=== PATIENT | female | born 1940 | race Caucasian/White ===

== ENCOUNTER → 2016-05-28 | Outpatient (REF) ==
[~2016-05-28] MED LIST: ACIDOPHILUS PO; AMOXICILLIN/CLA1 TA1 PO; ASPIRIN 32325 MG/TAB PO; BENADRYL25 M2 PO; CALCIUM + D 6001 TA1 PO; DITROPAN XL15 MG PO; DUO-KAPS1 CAP PO; FISH OIL CONCEN1 SGL PO; GENTAMICIN180 MG/502 NS; MOTRIN 200200 MG/TAB PO; NIACINAMIDE PO; OXYBUTYNIN5 MG PO; PAROXETINE HY37.5 MG PO; PERCOCET 325 MG1 TA2 PO; PROTONIX20 MG PO; TOPROL XL25 MG PO; UBIQUINOL50 MG PO; VITAMIN D31000 I1 PO
== END ==
LOC: WSOH 10:11
DX: Z02.89 Encounter for other administrative examinations (principal)

== ENCOUNTER → 2016-06-03 | Outpatient (REF) | LOC: WSOH 13:30 | DX: Z02.89 Encounter for other administrative examinations (principal) ==

== ENCOUNTER → 2016-11-19 | Outpatient (CLI) | payer BC | LOC: MC.RAD 10:00 | DX: Z12.31 Encounter for screening mammogram for malignant neoplasm of breast (principal) ==

== ENCOUNTER 2017-02-26 13:22 | Outpatient (CLI) | payer BC ==
[~2017-02-26] VITALS: Ht 165.1 cm; Wt 73.5 kg
[~2017-02-26 13:22] MED LIST changes: +ACIDOPHILIS PO; -ACIDOPHILUS PO; +COENZYME Q-10100 M1 PO; -PAROXETINE HY37.5 MG PO; +PAXIL CR37.5 MG PO; +TOPROL XL 25MG25 MG PO; -TOPROL XL25 MG PO; -UBIQUINOL50 MG PO
[2017-02-26] MEDS ORDERED: SINGULAIR 110 MG/TAB PO (14:17)
[2017-02-26] MEDS ORDERED: REPATHA SU140 MG/1 M SQ (14:17)
[2017-02-26] MEDS ORDERED: BENADRYL25 M2 PO (14:18)
[2017-02-26] MEDS ORDERED: TUMS500 MG PO (14:19)
[2017-02-26] MEDS ORDERED: PLAVIX 75MG TAB75 MG PO (14:24)
[2017-02-26] MEDS ORDERED: ASPIRIN E.C. 8181 MG PO (14:26)
[2017-02-26 15:15] VITALS: BP 115/53; PULSE 55; TEMP 97.7
== END 2017-02-26 16:30 | disposition home or self-care (01) ==
LOC: EUO 13:22
DX: K22.10 Ulcer of esophagus without bleeding (principal); M85.80 Other specified disorders of bone density and structure, unspecified site
CPT/HCPCS: J3489

== ENCOUNTER → 2018-03-09 | Outpatient (CLI) | payer BC ==
[~2018-03-09] MED LIST changes: +ASPIRIN E.C. 8181 MG PO; +PLAVIX 75MG TAB75 MG PO; +REPATHA SU140 MG/1 M SQ; +SINGULAIR 110 MG/TAB PO; +TUMS500 MG PO
== END ==
LOC: MC.RAD 14:00
DX: Z12.31 Encounter for screening mammogram for malignant neoplasm of breast (principal)

== ENCOUNTER 2018-04-01 09:58 | Outpatient (CLI) | payer BC ==
[~2018-04-01] VITALS: Ht 165.1 cm; Wt 71.0 kg
[2018-04-01 10:20] VITALS: BP 116/62; PULSE 62; TEMP 98
== END 2018-04-01 11:01 | disposition home or self-care (01) ==
LOC: EUO 09:58
DX: K22.10 Ulcer of esophagus without bleeding (principal); M85.80 Other specified disorders of bone density and structure, unspecified site; Z79.899 Other long term (current) drug therapy
CPT/HCPCS: J3489

== ENCOUNTER → 2019-04-02 | Outpatient (CLI) | payer BC | LOC: MC.RAD 11:15 | DX: Z12.31 Encounter for screening mammogram for malignant neoplasm of breast (principal) ==

== ENCOUNTER → 2019-12-14 | Outpatient (CLI) | payer BC | LOC: COL.LAB 11:24 | DX: R22.1 Localized swelling, mass and lump, neck (principal) ==

== ENCOUNTER → 2020-04-19 | Outpatient (CLI) | payer BC | LOC: COL.RAD 12:37 | DX: M47.812 Spondylosis without myelopathy or radiculopathy, cervical region (principal); M48.02 Spinal stenosis, cervical region; G31.9 Degenerative disease of nervous system, unspecified; R90.82 White matter disease, unspecified | CPT/HCPCS: A9585 ==

== ENCOUNTER → 2020-07-04 | Outpatient (CLI) | payer BC | LOC: MHCPAIN 09:06 | DX: M47.812 Spondylosis without myelopathy or radiculopathy, cervical region (principal); M54.2 Cervicalgia; R51.9 Headache, unspecified | CPT/HCPCS: G0463 ==

== ENCOUNTER → 2020-07-06 | Outpatient (CLI) | payer BC | LOC: MHCPAIN 10:11 | DX: M47.812 Spondylosis without myelopathy or radiculopathy, cervical region (principal); M54.2 Cervicalgia ==

== ENCOUNTER → 2020-07-12 | Outpatient (CLI) | payer BC | LOC: MHCPAIN 13:55 | DX: M47.812 Spondylosis without myelopathy or radiculopathy, cervical region (principal); M54.2 Cervicalgia; G89.29 Other chronic pain; R51.9 Headache, unspecified | CPT/HCPCS: G0463 ==

== ENCOUNTER → 2020-07-12 | Outpatient (CLI) | payer BC | LOC: COL.RAD 10:01 | DX: M47.812 Spondylosis without myelopathy or radiculopathy, cervical region (principal); M48.02 Spinal stenosis, cervical region ==

== ENCOUNTER → 2020-07-13 | Outpatient (CLI) | payer BC | LOC: MHCPAIN 09:29 | DX: M47.812 Spondylosis without myelopathy or radiculopathy, cervical region (principal); M54.2 Cervicalgia; R51.9 Headache, unspecified ==

== ENCOUNTER → 2020-07-20 | Outpatient (CLI) | payer BC | LOC: MHCPAIN 13:32 | DX: M47.812 Spondylosis without myelopathy or radiculopathy, cervical region (principal); M54.2 Cervicalgia; R51.9 Headache, unspecified | CPT/HCPCS: G0463; J2250; J3010 ==

== ENCOUNTER → 2020-08-01 | Outpatient (CLI) | payer BC | LOC: MHCPAIN 09:26 | DX: M47.812 Spondylosis without myelopathy or radiculopathy, cervical region (principal); M54.2 Cervicalgia; R51.9 Headache, unspecified; G89.29 Other chronic pain; I48.91 Unspecified atrial fibrillation | CPT/HCPCS: G0463 ==

== ENCOUNTER 2020-12-13 15:09 | Outpatient (CLI) | payer BC ==
[~2020-12-13] VITALS: Ht 165.1 cm; Wt 69.0 kg
--- NOTE | 2020-12-13 16:14 | NUR ---
infusion completed, iv d'cd intact and pt discharged
== END 2020-12-13 16:15 | disposition home or self-care (01) ==
LOC: EUO 15:09
DX: M81.0 Age-related osteoporosis without current pathological fracture (principal)
CPT/HCPCS: J3489

== ENCOUNTER → 2021-01-02 | Outpatient (CLI) | payer BC | LOC: MHCPAIN 09:03 | DX: M47.812 Spondylosis without myelopathy or radiculopathy, cervical region (principal); M54.81 Occipital neuralgia; M54.2 Cervicalgia | CPT/HCPCS: G0463 ==

== ENCOUNTER → 2021-01-22 | Outpatient (CLI) | payer BC | LOC: MHCPAIN 12:40 | DX: M47.812 Spondylosis without myelopathy or radiculopathy, cervical region (principal); M54.2 Cervicalgia; M54.81 Occipital neuralgia | CPT/HCPCS: J1100 ==

== ENCOUNTER 2021-12-17 13:09 | Outpatient (CLI) | payer BC ==
[2021-12-17 13:38] VITALS: BP 115/65; PULSE 59; TEMP 98.4
[2021-12-17] MEDS ORDERED: TYLENOL 500MG500 MG PO (13:46)
[2021-12-17] MEDS ORDERED: RECLAST5 MG/100 M IV (13:48)
--- NOTE | 2021-12-17 14:17 | NUR ---
Pt tolerated infusion without issue. IV DC'd, site wrapped with coban. She is escorted out to waiting room to meet her .
== END 2021-12-17 14:18 | disposition home or self-care (01) ==
LOC: EUO 13:09
DX: M81.0 Age-related osteoporosis without current pathological fracture (principal)
CPT/HCPCS: J3489

== ENCOUNTER → 2022-01-18 | Outpatient (CLI) | payer BC ==
[~2022-01-18] MED LIST changes: +RECLAST5 MG/100 M IV; +TYLENOL 500MG500 MG PO
== END ==
LOC: MC.RAD 10:59
DX: Z12.31 Encounter for screening mammogram for malignant neoplasm of breast (principal)

== ENCOUNTER 2023-02-05 08:25 | Emergency (ER) | payer BC ==
[~2023-02-05] VITALS: Ht 162.6 cm; Wt 68.2 kg
[~2023-02-05 08:25] MED LIST changes: +FOLIC ACID 11 MG/TA1 PO; +PREDNISONE20 MG PO; +VITAMIN D 50,1.25 MG PO; +VITAMINC1000TA
[2023-02-05 08:26] VITALS: TEMP 97.4
[2023-02-05] MEDS ORDERED: ATARAX 25MG25 MG/TAB PO (09:04)
[2023-02-05] MEDS ORDERED: PRIL40 PO (09:04)
[2023-02-05] MEDS ORDERED: VESICARE 5MG5 MG PO (09:05)
[2023-02-05 09:06] LABS: BASO # 0.1 K/mm3 (0.0-0.2); BASO % 0.7 % (0.0-2.0); EOS # 0.3 K/mm3 (0.0-0.7); EOS % 3.1 % (0.0-4.0); GRAN % 69.3 % (42.2-75.2); LYMPH # 1.7 K/mm3 (1.2-3.4); LYMPH % 19.2 % (20.0-51.0); MEAN CELL VOLUME 94 fl (80.0-100.0); MEAN CORPUSCULAR HEMOGLOBIN 32 pg (27-31); MEAN CORPUSCULAR HGB CONC 34 g/dl (33.0-37.0); MEAN PLATELET VOLUME 10.6 fl (7.4-10.4); MONO # 0.6 K/mm3 (0.1-0.6); MONO % 7.4 % (1.7-9.3); PLATELET COUNT 152 K/mm3 (130-400); RED BLOOD COUNT 3.76 M/mm3 (4.10-5.30); REDCELL DISTRIBUTION WIDTH-CV 14.4 % (11.5-14.5)
[2023-02-05 09:08] LABS: HEMATOCRIT 35.5 % (37.0-47.0)
[2023-02-05] MEDS ORDERED: GNC NAC 600600 MG PO (09:10)
[2023-02-05 09:28] LABS: ALANINE AMINOTRANSFERASE 24 U/L (0-55); ALBUMIN 3.8 gm/dL (3.4-4.8); ALKALINE PHOSPHATASE 59 U/L (40-150); ANION GAP 12 mmol/L (7-16); AST,SGOT 24 U/L (5-34); BILIRUBIN,TOTAL 0.7 mg/dL (0.2-1.2); BLOOD UREA NITROGEN 12 mg/dL (10-20); CALCIUM 8.6 mg/dL (8.4-10.2); CARBON DIOXIDE 20 mmol/L (23-31); CHLORIDE 113 mmol/L (98-107); CREATININE, serum 0.81 mg/dL (0.57-1.11); GLUCOSE 103 mg/dL (70-99); SODIUM 145 mmol/L (136-145)
[2023-02-05 09:42] LABS: TROPONIN-I < 0.010 ng/mL (0.00-0.033)
[2023-02-05 10:01] LABS: COLLECTION METHOD CLEAN CATCH
[2023-02-05 10:33] LABS: PH 8.5 (5.0-8.5); URINE APPEARANCE Clear (CLEAR/HAZY); URINE COLOR Yellow (YELLOW); URINE GLUCOSE Negative (NEGATIVE); URINE KETONE Negative (NEGATIVE); URINE PROTEIN(semi-quant) Negative (NEGATIVE)
[2023-02-05 10:34] LABS: SQUAMOUS EPITHELIAL 0-2 /hpf (0-10); URINE BACTERIA None Seen /hpf (NONE SEEN); URINE BLOOD 1+ (NEGATIVE); URINE NITRATE Negative (NEGATIVE)
[2023-02-05] MEDS ORDERED: ZOFRAN ODT4 MG PO (11:30)
[2023-02-05 11:35] VITALS: BP 144/94; PULSE 57
== END 2023-02-05 12:00 | disposition home or self-care (01) ==
LOC: COL.ER 08:25
PROVIDERS: Emergency Medicine
DX: R10.11 Right upper quadrant pain (principal); R11.2 Nausea with vomiting, unspecified; Z87.891 Personal history of nicotine dependence; Z20.822 Contact with and (suspected) exposure to COVID-19
CPT/HCPCS: J7030; Q9967

== ENCOUNTER → 2024-02-20 | Outpatient (CLI) | payer BC ==
[~2024-02-20] MED LIST changes: +ATARAX 25MG25 MG/TAB PO; +GNC NAC 600600 MG PO; +PRIL40 PO; +VESICARE 5MG5 MG PO; +ZOFRAN ODT4 MG PO
== END ==
LOC: MC.RAD 13:15
DX: Z12.31 Encounter for screening mammogram for malignant neoplasm of breast (principal)